=== PATIENT | male | born 1980 | race Caucasian/White ===

== ENCOUNTER → 2020-06-17 | Outpatient (CLI) | payer OTHER ==
[~2020-06-17] MED LIST: AMPDEX10CR PO; LORA10ER PO; TRAZ50 PO
[2020-06-17 20:12] LABS: BASOPHILS ABSOLUTE AUTO 0.03 K/mm3 (0.00-0.23); BASOPHILS PERCENT AUTO 1 % (0-2); EOSINOPHILS ABSOLUTE AUTO 0.11 K/mm3 (0.00-0.68); EOSINOPHILS PERCENT AUTO 2 % (0-6); Hematocrit 46.9 % (37.0-53.0); Hemoglobin 15.6 g/dL (13.5-17.5); IMMATURE GRAN ABSOLUTE AUTO 0.02 K/mm3 (0.00-0.10); IMMATURE GRAN PERCENT AUTO 0 % (0-1); LYMPHOCYTES ABSOLUTE AUTO 1.67 K/mm3 (0.84-5.20); LYMPHOCYTES PERCENT AUTO 34 % (21-46); MONOCYTES ABSOLUTE AUTO 0.42 K/mm3 (0.16-1.47); MONOCYTES PERCENT AUTO 9 % (4-13); Mean Corpuscular HGB 30.8 pg (26.0-34.0); Mean Corpuscular HGB Conc 33.3 g/dL (31.5-36.5); Mean Corpuscular Volume 93 fL (80-100); NEUTROPHILS ABSOLUTE AUTO 2.72 K/mm3 (1.96-9.15); NEUTROPHILS PERCENT AUTO 55 % (41-73); Platelet Count 163 K/mm3 (150-400); RDW Coefficient Variation 11.4 % (11.7-14.2); RDW Standard Deviation 38.4 fL (35.1-46.3); Red Blood Cell Count 5.06 M/mm3 (4.30-5.90); White Blood Cell Count 4.97 K/mm3 (4.00-11.30)
[2020-06-17 20:14] LABS: Mean Platelet Volume 13.7 fL (9.1-12.4)
[2020-06-17 20:21] LABS: Percent Saturation 42.8 % (20.0-50.0)
[2020-06-17 20:22] LABS: Alanine Aminotransfer (ALT/SGP 27 U/L (12-78); Albumin/Globulin Ratio 1.1 (0.8-1.8); Alk Phos 74 U/L (50-136); Anion Gap 5 mmol/L (6-16); Aspartate Aminotrans (AST/SGOT 19 U/L (12-37); Bilirubin, Total 0.7 mg/dL (0.1-1.0); Blood Urea Nitrogen 15 mg/dL (8-24); Bun/Creatinine Ratio 16.5 (12.0-20.0); CHOL/HDL RATIO 4.4; CO2, Blood 29 mmol/L (21-32); Calcium, Blood 9.3 mg/dL (8.5-10.1); Chloride, Blood 109 mmol/L (98-108); Cholesterol 171 mg/dL (50-200); Creatinine, Blood 0.91 mg/dL (0.60-1.20); Free Thyroxine 1.29 ng/dL (0.70-1.60); Globulin, Blood 3.5 g/dL (2.2-4.0); Glomerular Filtration Rate >60 (60-); Glucose, Blood 77 mg/dL (70-99); HDL Cholesterol 39 mg/dL (>39); LDL/HDL RATIO 1.6; Low Density Lipoprotein Chol 61 mg/dL (0-110); Potassium, Blood 4.3 mmol/L (3.5-5.5); Sodium, Blood 143 mmol/L (136-145); Total Protein, Blood 7.5 g/dL (6.4-8.2); Triglycerides 355 mg/dL (30-160); Very Low Density Lipoprot Chol 71 mg/dL (6-32)
[2020-06-17 20:31] LABS: PSA, %Free 39.6 %; PSA, Free 0.074 ng/mL; Prostate Specific Antigen 0.187 ng/mL (0.000-4.000)
== END | disposition home or self-care (01) ==
LOC: LAB 17:54 → LAB SHORT 17:54
PROVIDERS: Nurse Practitioner Family
DX: E78.5 Hyperlipidemia, unspecified (principal); N40.1 Benign prostatic hyperplasia with lower urinary tract symptoms; R53.83 Other fatigue; R53.81 Other malaise
CPT/HCPCS: 80053; 80061; 82728; 83540; 83550; 84153; 84154; 84439; 84443; 85025